=== PATIENT | female | born 1950 | race Caucasian/White ===

== ENCOUNTER → 2019-07-09 10:37 | Outpatient (CLI) | payer BC, SELFPAY ==
--- NOTE | 2019-07-09 10:44 | BD_ITS ---
STUDY: DUAL ENERGY X-RAY ABSORPTIOMETRY / DXA REASON FOR EXAM: Female, 69 years old. The patient is postmenopausal. Loss of height. TECHNIQUE: Bone Mineral Density (BMD) measurements of lumbar spine and bilateral hips were obtained. COMPARISON: None. FINDINGS: Lumbar Spine (L1-L4): g/cm2 (0.932) / T-score (-2.0) / Z-score (-0.3) Findings are suggestive of normal bone density with a moderate fracture risk. Left Femur Total: g/cm2 (0.875) / T-score (-1.0) / Z-score (0.4) Left Femoral Neck: g/cm2 (0.813) / T-score (-1.6) / Z-score (0.1) Right Femur Total: g/cm2 (0.886) / T-score (-1.0) / Z-score (0.5) Right Femoral Neck: g/cm2 (0.816) / T-score (-1.6) / Z-score (0.1) BD/Dexa Bone Density Study IMPRESSION: The patient is considered osteopenic as outlined below according to World [place] Organization (WHO) criteria with a moderate fracture risk. Reference Information: The T-score is the number of standard deviations above or below the standard which is normal for young adults at their peak bone mineral density. The World Health Organization (WHO) interprets the T-scores as follows: Above -1 Normal bone density Between -1 and -2.5 Osteopenia Equal to / or below -2.5 Osteoporosis As a practical clinical guideline, osteopenia may be graded as follows: Mild -1 through -1.5 Moderate -1.6 through -2.0 Severe -2.1 through -2.4 The Z-score is the number of standard deviations above or below age-matched controls. A Z-score of less than -1.5 would be considered abnormal. References: 1. NIH Osteoporosis and Related Bone Diseases http://www.osteo.org 2. International Society for Clinical Densitometry http://www.iscd.org 3. National Osteoporosis Foundation http://www.nof.org Electronically Signed: Cyrus Simons, at 9:49 EST , Service support ,
== END ==
PROVIDERS: Family Provider Family Medicine; PCP Family Medicine; Referring Provider Family Medicine; Visit Provider Family Medicine
DX: Z78.0 Asymptomatic menopausal state (principal)
CPT/HCPCS: 77080

== ENCOUNTER → 2019-07-12 11:25 | Outpatient (CLI) | payer MEDICARE, SELFPAY ==
--- NOTE | 2019-07-12 11:28 | BI_ITS ---
MAMMOGRAPHY - BILATERAL SCREENING REASON FOR EXAM: Female, 69 years old. Routine annual screening examination. PERTINENT HISTORY: Non-contributory. Remote right stereotactic breast biopsy. TECHNIQUE: Digital bilateral breast miryam (3D mammographic acquisition) in the CC and MLO projections. 2-D mediolateral oblique (MLO) and craniocaudad (CC) views of both breasts were obtained. CAD: Full Field Digital Mammography with Computer Added Detection was performed. COMPARISON: Comparison is made with prior study dated January 30, 2017. FINDINGS: Breast Composition: The breasts are heterogeneously dense, which may obscure small masses. There are no dominant masses or suspicious calcifications. A tissue clip marker is seen in the upper slightly outer anterior portion of the right breast. The previously seen nodular density has decreased in size. No other significant abnormalities are identified. There has been no significant change since the prior study. BI/SCREEN MAMM (CAD) W/MIRYAM BILAT IMPRESSION: Stable bilateral screening mammogram. Yearly follow-up mammogram recommended. (A) ASSESSMENT CATEGORY: BIRADS Category 2: Benign. A letter regarding these results will be sent to the patient by the facility within 30 days. Approximately 10% of breast cancers are not detected by mammography. A normal mammogram should not delay biopsy of a clinically suspicious abnormality. [id number] Electronically Signed: Cyrus Simons, at 14:40 EST , Service support ,
== END ==
PROVIDERS: Family Provider Family Medicine; PCP Family Medicine; Referring Provider Family Medicine; Visit Provider Family Medicine
DX: Z12.31 Encounter for screening mammogram for malignant neoplasm of breast (principal)
CPT/HCPCS: 77063; 77067

== ENCOUNTER → 2021-07-19 10:16 | Outpatient (CLI) | payer MEDICARE, SELFPAY ==
--- NOTE | 2021-07-19 10:20 | BI_ITS ---
MAMMOGRAPHY - BILATERAL SCREENING REASON FOR EXAM: Female, 71 years old. Routine annual screening examination. PERTINENT HISTORY: Non-contributory. History of prior right stereotactic breast biopsy. TECHNIQUE: Digital bilateral breast miryam (3D mammographic acquisition) in the CC and MLO projections. 2-D mediolateral oblique (MLO) and craniocaudad (CC) views of both breasts were obtained. CAD: Full Field Digital Mammography with Computer Added Detection was performed. COMPARISON: Comparison is made with prior study dated 07/12/2019 and 01/30/2017 FINDINGS: Breast Composition: The breasts are heterogeneously dense, which may obscure small masses. There are no dominant masses or suspicious calcifications. A tissue clip marker is seen in the slightly upper lateral aspect of the right breast. This is unchanged. No other significant abnormalities are identified. There has been no significant change since the prior study. BI/SCRN MAMM (CAD)W/MIRYAM BILAT IMPRESSION: Stable bilateral screening mammogram. Yearly follow-up mammogram recommended. (A) ASSESSMENT CATEGORY: BIRADS Category 2: Benign. A letter regarding these results will be sent to the patient by the facility within 30 days. Approximately 10% of breast cancers are not detected by mammography. A normal mammogram should not delay biopsy of a clinically suspicious abnormality. [id number] Electronically Signed: Cyrus Simons MD at 12:49 EST , Service support ,
== END ==
PROVIDERS: PCP Family Medicine; Referring Provider Family Medicine; Visit Provider Family Medicine
DX: Z12.31 Encounter for screening mammogram for malignant neoplasm of breast (principal)
CPT/HCPCS: 77063; 77067

== ENCOUNTER → 2022-07-20 | Outpatient (CLI) | payer MEDICARE, SELFPAY ==
--- NOTE | 2022-07-20 10:05 | BI_ITS ---
MAMMOGRAPHY - BILATERAL SCREENING REASON FOR EXAM: Female, 72 years old. Routine annual screening examination. PERTINENT HISTORY: Non-contributory. Prior right stereotactic breast biopsy. TECHNIQUE: Digital bilateral breast miryam (3D mammographic acquisition) in the CC and MLO projections. 2-D mediolateral oblique (MLO) and craniocaudad (CC) views of both breasts were obtained. CAD: Full Field Digital Mammography with Computer Added Detection was performed. COMPARISON: Comparison is made with prior study 07/19/2021 and 07/12/2019. FINDINGS: Breast Composition: There are scattered areas of fibroglandular density. There are no dominant masses or suspicious calcifications. Stable asymmetry of breast tissue where more breast tissue is seen in the upper-outer quadrant of the left breast as compared to the right side. A tissue clip marker is once again seen in the slightly upper lateral aspect of the right breast. No other significant abnormalities are identified. There has been no significant change since the prior study. BI/SCRN MAMM (CAD)W/MIRYAM BILAT IMPRESSION: Stable bilateral screening mammogram. Yearly follow-up mammogram recommended. (A) ASSESSMENT CATEGORY: BIRADS Category 2: Benign. A letter regarding these results will be sent to the patient by the facility within 30 days. Approximately 10% of breast cancers are not detected by mammography. A normal mammogram should not delay biopsy of a clinically suspicious abnormality. [id number] Electronically Signed: Cyrus Simons MD at 11:24 EST ,
== END | disposition home or self-care (01) ==
LOC: OPBI 10:04
PROVIDERS: PCP Family Medicine; Visit Provider Family Medicine
DX: Z12.31 Encounter for screening mammogram for malignant neoplasm of breast (principal)
CPT/HCPCS: 77063; 77067

== ENCOUNTER → 2023-07-25 | Outpatient (CLI) | payer MEDICARE, SELFPAY ==
--- NOTE | 2023-07-25 10:19 | BI_ITS ---
MAMMOGRAPHY - BILATERAL SCREENING REASON FOR EXAM: Female, 73 years old. Routine annual screening examination. PERTINENT HISTORY: Non-contributory. TECHNIQUE: Digital bilateral breast miryam (3D mammographic acquisition) in the CC and MLO projections. 2-D mediolateral oblique (MLO) and craniocaudad (CC) views of both breasts were obtained. CAD: Full Field Digital Mammography with Computer Added Detection was performed. COMPARISON: Comparison is made with prior study dated July 20, 2022 and July 19, 2021. FINDINGS: Breast Composition: The breasts are heterogeneously dense, which may obscure small masses. There are no dominant masses or suspicious calcifications. There is stable asymmetry of breast tissue where more breast tissue is seen in the upper-outer quadrant of the left breast as compared to the right side. The surgical marker is once again seen in the slightly upper lateral aspect of the right breast. No other significant abnormalities are identified. There has been no significant change since the prior study. BI/SCRN MAMM (CAD)W/MIRYAM BILAT IMPRESSION: Stable bilateral screening mammogram. Yearly follow-up mammogram recommended. (A) ASSESSMENT CATEGORY: BIRADS Category 2: Benign. A letter regarding these results will be sent to the patient by the facility within 30 days. Approximately 10% of breast cancers are not detected by mammography. A normal mammogram should not delay biopsy of a clinically suspicious abnormality. [id number] Electronically Signed: Cyrus Simons MD at 12:39 EST ,
--- NOTE | 2023-07-25 10:23 | BD_ITS ---
STUDY: DUAL ENERGY X-RAY ABSORPTIOMETRY / DXA REASON FOR EXAM: Female, 73 years old. [id number] TECHNIQUE: Bone Mineral Density (BMD) measurements of lumbar spine and bilateral hips were obtained. COMPARISON: Comparison is made with prior study July 09, 2019. FINDINGS: Lumbar Spine (L1-L4): g/cm2 (0.821) / T-score (-2.1) / Z-score (0.3) Findings are suggestive of osteopenia with a high fracture risk. Left Femur Total: g/cm2 (0.799) / T-score (-1.2) / Z-score (0.6) Left Femoral Neck: g/cm2 (0.665) / T-score (-1.7) / Z-score (0.4) Right Femur Total: g/cm2 (0.860) / T-score (-0.7) / Z-score (1.1) Right Femoral Neck: g/cm2 (0.676) / T-score (-1.6) / Z-score (0.5) The T-Scores on the most recent prior examination were: Lumbar Spine (L1-L4): There has been worsening of bone density since the previous examination. Left Femur Total: which represents a worsening of 1.7%. Right Femur Total: which represents an improvement of 4.4%. BD/Dexa Bone Density Study IMPRESSION: The patient is considered osteopenic as outlined below according to World [place] Organization (WHO) criteria with a high fracture risk. There has been worsening of bone density since the previous examination. Reference Information: The T-score is the number of standard deviations above or below the standard which is normal for young adults at their peak bone mineral density. The World Health Organization (WHO) interprets the T-scores as follows: Above -1 Normal bone density Between -1 and -2.5 Osteopenia Equal to / or below -2.5 Osteoporosis As a practical clinical guideline, osteopenia may be graded as follows: Mild -1 through -1.5 Moderate -1.6 through -2.0 Severe -2.1 through -2.4 The Z-score is the number of standard deviations above or below age-matched controls. A Z-score of less than -1.5 would be considered abnormal. References: 1. NIH Osteoporosis and Related Bone Diseases www osteo.org 2. International Society for Clinical Densitometry www iscd.org 3. National Osteoporosis Foundation www nof.org Electronically Signed: Cyrus Simons MD at 12:37 EST ,
== END | disposition home or self-care (01) ==
LOC: OPBD 10:17
PROVIDERS: PCP Family Medicine; Referring Provider Family Medicine; Visit Provider Family Medicine
DX: Z12.31 Encounter for screening mammogram for malignant neoplasm of breast (principal); Z78.0 Asymptomatic menopausal state
CPT/HCPCS: 77063; 77067; 77080

== ENCOUNTER 2024-07-04 13:48 | Day surgery (SDC) | payer MEDICARE, SELFPAY ==
[2024-07-04 14:06] VITALS: BP 143/76; PULSE 66; RESP 17; TEMP 36.2; O2SAT 99; BMI 31.5
--- NOTE | 2024-07-04 14:50 | LES_PTH ---
PATIENT: LILY KRAMER LOC: [facility] [place] U#:[id number] AGE/SX: 74/F ROOM: RE07/04/[address]: Dr. Kyra Trevino MD : 1950 BED: DIS: 07/04/2024 SPEC #: [id number] RECD: 07/04/24 18:13 STATUS: MARGARET RETabitha #: [id number] KURT: 07/04/24 14:[address]: Kyra Trevino DEPT: SURGICAL PATHOLOGY RECD BY: Angelica Orozco ENTERED: 07/05/24 07:33 SP TYPE: Lesion OTHR DR: Dr. Tevin Oliver MD Tissues: Skin of face, NOS Procedures: Surgery Specimen Level IV HEADER OPERATION: Excision lesion right cheek PRE-OP DIAGNOSIS: Neoplasm of uncertain behavior of skin of face TISSUE SUBMITTED: Lesion right cheek MICROSCOPIC DIAGNOSIS Right cheek lesion, excision: Basal cell carcinoma, completely excised in the planes of sections examined. Solar elastosis. SJ.mr 07/08/2024 COMMENT Case has been reviewed in consultation with Dr. Do who concurs with the above diagnosis. IDC:MJ MICROSCOPIC DESCRIPTION Slides are reviewed. GROSS DESCRIPTION Received in fixative is one container labeled with the patient's name and designated Right cheek lesion. The specimen consists of a piece of molina-white skin measuring 1.5 x 0.5 x 0.1cm. The specimen is inked, serially sectioned and submitted entirely in one cassette. . 07/05/2024 TC:0 CPT:65826
--- NOTE | 2024-07-04 15:11 | PCM.HP.BLA ---
History and Physical Date of Admission: 07/04/24 The patient is examined and there are no changes from the H&P dated 07/02/2024. The patient presents for excision of the lesion of the right upper cheek with submission for pathologic valuation. She is aware the potential need for further surgery depending on the resulting pathology. Assessment & Plan Assessment/Plan (1) Neoplasm of uncertain behavior of skin of face: PLAN: Plan For excision of neoplasm right upper cheek
[2024-07-04 15:25] VITALS: BP 161/71; BP 179/67; O2SAT 95; O2SAT 96; O2SAT 97; O2SAT 98
[2024-07-04] MEDS: Povidone Iodine 30 ML Opthalmic Sol 1 DRP (15:40)
[2024-07-04] MEDS: Lidocaine 1% /Epi 1:100 9 ML, Sodium Bicarbonate 1 MEQ OPERA.SITE (15:46)
--- NOTE | 2024-07-04 16:08 | PCM.HP.BLA ---
History and Physical Date of Admission: 07/04/24 The patient is examined and there are no changes from the H&P dated 07/02/2014. Informed consent was obtained for excision lesion right lower eyelid. Specimen will be sent to pathology for evaluation. She is aware the potential need for further surgery depending on the resulting pathology. Assessment & Plan Assessment/Plan (1) Neoplasm of uncertain behavior of skin of face: PLAN: Plan For excision lesion right lower eyelid.
--- NOTE | 2024-07-04 16:11 | PCM.OPRPT ---
Problems Associated Problem List Diagnoses (1) Neoplasm of uncertain behavior of skin of face: Operative Report (Standard) Operative Information Surgery/Procedure Performed: Excision lesion right lower eyelid (1.5 cm) Surgeon: Kyra Trevino Date of Procedure: 07/04/24 Procedure Start Time: 15:45 Procedure Stop Time: 16:05 Pre-Operative Diagnosis: Neoplasm uncertain behavior right lower eyelid Post-Operative Diagnosis: Same Select all DRAINS/GRAFTS/IMPLANTS that apply: None Type of Anesthesia: Local Estimated Blood Loss: Minimal Specimen collected: Yes Description of specimen(s) removed: Skin lesion right lower eyelid Description of surgery: The patient presents with a history of a lesion of the right lower eyelid which had been treated in the past however has continued to grow. She presents for excision of the lesion of the right lower eyelid with submission for pathologic evaluation. She is aware the potential need for further surgery depending on the resulting pathology. The patient is brought to the operating room and placed on the operating room table in the supine position. The face is prepped and draped in the usual sterile fashion. 1% Xylocaine with epinephrine is used for local anesthetic. Following this, the site is excised and passed off the operative field to be sent to pathology. Hemostasis is controlled with cautery. The incisions then closed with a combination of interrupted and running plain gut suture. Dermabond and Steri-Strips were placed on the site. She tolerated the procedure well and was taken to the recovery area in an awake and stable condition. Needle and sponge counts are correct. Surgical Findings: Neoplasm right lower eye Reuse Technician time piece repairer: No Complications Complications: No Admit VTE Documentation VTE Pharm Prophylaxis ordered?: No Reason prophylaxis not ordered: Treatment Not Indicated
--- NOTE | 2024-07-04 16:15 | EX.PCM.DISCH ---
Discharge Instructions Dressing / Incision Additional Dressing/Incision Instructions:: Keep the tape dry. Do not remove the tape until seen in the office. Keep your back elevated (recliner position) for the next 2-3 nights to reduce swelling and bruising. Take the oral antibiotic (Keflex) 2 times a day until finished. Follow Up Care Please Follow Up With: Kyra Trevino MD When: In 2 weeks Test Results: Test results from this visit will be discussed in further detail at your follow-up appointment, if applicable. Discharge Plan Admission Attending Provider: Kyra Trevino Primary Care Provider: Tevin Oliver Instructions Print Language: Stateless Discharge Orders/Prescriptions Prescriptions: New cephalexin 500 mg capsule 500 mg PO BID 5 Days Qty: 10 0RF No Action lisinopril 30 mg tablet 30 mg PO DAILY rosuvastatin 10 mg tablet 10 mg PO DAILY cholecalciferol (vitamin D3) 10 mcg (400 unit) capsule 10 mcg PO QDAY magnesium hydroxide [Dulcolax (magnesium hydroxide)] 400 mg/5 mL suspension 400 mg PO QDAY FiberWell 2.5 gram tablet,chewable PO pantoprazole 20 MG tablet 20 mg PO DAILY calcium 600 mg capsule 600 mg PO DAILY Referrals / Follow Up: Tevin Oliver MD [Primary Care Provider] - Disposition Disposition (needs filled in before D/C Order can be placed): Home, Self Care
[2024-07-04 16:21] VITALS: BP 143/76; BP 189/85; PULSE 57; RESP 16; TEMP 36.1; O2SAT 99
== END 2024-07-04 16:29 | disposition home or self-care (01) ==
LOC: SDC 13:51 → AC 13:52
PROVIDERS: PCP Internal Medicine; Referring Provider Plastic Surgery; Visit Provider Plastic Surgery
PROC: (CPT 11642; principal; 2024-07-04 14:40)
DX: C44.319 Basal cell carcinoma of skin of other parts of face (principal); K21.9 Gastro-esophageal reflux disease without esophagitis; I10 Essential (primary) hypertension; E78.00 Pure hypercholesterolemia, unspecified; Z87.891 Personal history of nicotine dependence; L57.8 Other skin changes due to chronic exposure to nonionizing radiation; Z79.899 Other long term (current) drug therapy
CPT/HCPCS: 11642; 88305

== ENCOUNTER → 2024-11-08 | Outpatient (CLI) | payer MEDICARE, SELFPAY ==
--- NOTE | 2024-11-08 12:40 | BI_ITS ---
EXAM: SCRN MAMM (CAD)W/MIRYAM BILAT 11/08/2024 CLINICAL HISTORY: F, Age 74 y/o , SCREENING. There is no family history of breast cancer. TECHNIQUE: Bilateral screening digital breast tomosynthesis with 2D and 3D images. Computer aided detection. COMPARISON: Prior exam(s) dated 07/25/2023, 07/20/2022. FINDINGS: TISSUE DENSITY: The breast tissue is composed of scattered area of fibroglandular density. Bilateral Breast Mammographic Findings: No significant masses, calcifications or other abnormalities are identified. BI/SCRN MAMM (CAD)W/MIRYAM BILAT IMPRESSION: There is no evidence of malignancy in either breast. OVERALL FINAL ASSESSMENT: BIRADS 1 NEGATIVE. RECOMMENDATION: Routine annual follow-up in 1 Year A letter with findings and recommendations will be mailed to the patient. Reading Location: [id number]
== END | disposition home or self-care (01) ==
LOC: OPBI 12:39
DX: Z12.31 Encounter for screening mammogram for malignant neoplasm of breast (principal)
CPT/HCPCS: 77063; 77067